=== PATIENT | male | born 1955 | race Caucasian/White ===

== ENCOUNTER 2020-02-08 13:08 | Inpatient (IN) | payer OTHER, MEDICAID ==
[~2020-02-08] VITALS: Ht 165.1 cm; Wt 83.5 kg
[2020-02-08 13:12] VITALS: BP 126/70
--- NOTE | 2020-02-08 13:15 | NUR ---
PT AMBULATED TO LOBBY
--- NOTE | 2020-02-08 13:30 | NUR ---
Pt placed in bed 8.
--- NOTE | 2020-02-08 13:45 | NUR ---
Patient being evaluated by Dr. Koehler at bedside.
--- NOTE | 2020-02-08 14:10 | NUR ---
64/M WAS SENT TO ED BY PCP FOR EVALUTION OF ABNORMAL LABS. [facility] DOCTOR CALLED AND REPORTED HE HAD A LOW HEMOGLOBIN LEVEL. PT APPEARS PALE, BUT HAS NO COMPLAINTS. HX ANEMIA
[2020-02-08 14:12] LABS: BASOPHILS # (AUTO) 0.1 K/uL (0.00-0.22); BASOPHILS % (AUTO) 1.1 % (0.0-2.0); EOSINOPHILS # (AUTO) 0.1 K/uL (0-0.4); EOSINOPHILS % (AUTO) 1.5 % (0.0-4.0); HEMATOCRIT 22.7 % (36-52); LYMPHOCYTES # (AUTO) 1.3 K/uL (2.0-11.5); LYMPHOCYTES % (AUTO) 15.1 % (20.5-51.1); MEAN CORPUSCULAR HEMOGLOBIN 18 pg (27-31); MEAN CORPUSCULAR HGB CONC 29 g/dL (33-37); MEAN CORPUSCULAR VOLUME 61.1 fL (80-94); MONOCYTES # (AUTO) 0.7 K/uL (0.8-1.0); MONOCYTES % (AUTO) 8.1 % (1.7-9.3); NEUTROPHILS # (AUTO) 6.2 K/uL (1.8-7.7); NEUTROPHILS % (AUTO) 74.2 % (42.2-75.2); PLATELET COUNT (AUTO) 402 K/uL (140-450); RED BLOOD CELL COUNT(AUTO) 3.71 MIL/uL (4.20-6.10); RED CELL DISTRIBUTION WIDTH 19.4 % (11.6-13.7); WHITE BLOOD COUNT (AUTO) 8.3 K/uL (4.8-10.8)
--- NOTE | 2020-02-08 14:13 | NUR ---
Pt report given to Ian. Transfer of care at this time.
[2020-02-08 14:19] LABS: HEMOGLOBIN 6.6 g/dL (12.0-18.0)
[2020-02-08 15:19] LABS: ALBUMIN 3.4 g/dL (3.4-5.0); ANION GAP 17.3 (8-16); CARBON DIOXIDE 21.1 mmol/L (21-32); CREATININE 1.5 mg/dL (0.6-1.3); POTASSIUM 4.4 mmol/L (3.5-5.1); TOTAL BILIRUBIN 0.4 mg/dL (0.0-1.0)
[2020-02-08 15:30] LABS: PROTHROMBIN TIME 9.9 secs (10.8-13.4)
--- NOTE | 2020-02-08 15:30 | NUR ---
PT IS RESTING IN BED AWAKE AND ALERT, VSS, AAOX4. ALL NEEDS MET AT THIS TIME
[2020-02-08] MEDS ORDERED: ACETAMINOPHEN 325 MG TAB PO PRN (15:55)
[2020-02-08] MEDS ORDERED: DOCUSATE SODIUM 100 MG GELCAP PO PRN (15:55)
[2020-02-08] MEDS ORDERED: ONDANSETRON 4 MG/2 ML VIAL IM/IVP PRN (15:55)
[2020-02-08 16:46] LABS: APPEARANCE,URINE CLEAR (CLEAR); BILIRUBIN,URINE NEGATIVE (NEGATIVE); BLOOD, URINE NEGATIVE (NEGATIVE); LEUKOCYTE ESTERASE ,URINE NEGATIVE (NEGATIVE); NITRITE, URINE NEGATIVE (NEGATIVE); UGLUCOSE NEGATIVE (NEGATIVE)
[2020-02-08 16:49] LABS: FREE T4 (FREE THYROXINE) 1.14 ng/dL (0.76-1.46); MAGNESIUM 1.8 mg/dL (1.8-2.4); THYROID STIMULATING HORMONE 0.31 uIU/mL (0.34-3.74)
[2020-02-08 16:58] LABS: COLOR,URINE STRAW (YELLOW)
[2020-02-08 17:12] LABS: BARBITURATE, URINE NEGATIVE ng/ml (NEG <=200); BENZODIAZEPINE, URINE NEGATIVE ng/mL (NEG <=200); CANNABINOID, URINE NEGATIVE ng/mL (NEG <=50); COCAINE, URINE NEGATIVE ng/mL (NEG <=300); OPIATE, URINE POSITIVE ng/mL (NEG <=2000); PHENCYCLIDINE SCREEN,URINE NEGATIVE ng/mL (NEG <=25)
--- NOTE | 2020-02-08 17:19 | NUR ---
BLOOD HAS BEEN HUNG, RUNNING AT 50 DROPS/MIN.
--- NOTE | 2020-02-08 17:35 | NUR ---
VSS, NO ADVERSE REACTION NOTED. PT DENIES ANY PAIN, RESP EVEN AND UNLABORED
[2020-02-08] MEDS: HYDROcodone/APAP 7.5/325 MG 1 TAB PO PRN ×2 (19:04→23:08)
--- NOTE | 2020-02-08 19:18 | NUR ---
RECEIVED REPORT FROM SHAD VALDOVINOS FOR CONTINUITY OF CARE.
[2020-02-08] MEDS: FERROUS SULFATE 325 MG TABEC PO SCH ×2 (20:19→20:20)
[2020-02-08 21:00] VITALS: BP 140/72
--- NOTE | 2020-02-08 21:00 | NUR ---
RECEIVED PT FROM ER NURSE, MARVIN. PT CAME IN [facility] AND ABLE TO AMBULATE TO [facility] BED. PT AAOX4, RESPIRATORY EVEN AND UNLABORED WITH ROOM AIR. IV SITE ON RAC 20G, PATENT, INTACT, AND ASYMPTOMATIC. SKIN INTACT, WARM AND DRY TO TOUCH. SKIN COLOR APPROPRIATE TO ETHNICITY. MRSA SWAB DONE, VS CHECKED, WITHIN PT'S BASELINE. ORIENT ROOM TO PT. ALL SAFETY MEASUREMENT ARE MET. PT STATES " I TAKE 9MG OF MELATONIN EVERY DAY AND ACID REFLEX MEDICATION NEEDED." WILL CALL TO DR. HUSSEIN. BED IN LOW POSITION, CALL LIGHT WITHIN REACH AND ENCOURAGE TO USE IT. WILL CONTINUE TO MONITOR.
--- NOTE | 2020-02-08 21:00 | NUR ---
FERROUS SULFATE PO ADM. PT TOLERATED WELL.
--- NOTE | 2020-02-08 21:05 | NUR ---
Patient will be admitted to care of DR HUSSEIN. Admited to TELE. Will go to room 110 B. Belongings list completed. Report to JHONNY VALDOVINOS.
--- NOTE | 2020-02-08 21:10 | NUR ---
PT TRANSFERRED TO 110 [address]. ACCOMPANIED BY 2 RNs NO COMPLICATIONS or DISTRESS NOTED.
--- NOTE | 2020-02-08 21:30 | NUR ---
PAGED DR. HUSSEIN AND RECEIVED ORDER OF MELATONIN AND PROTONIX. WILL ADMINISTER.
[2020-02-08] MEDS ORDERED: PANTOPRAZOLE 40 MG TABEC PO ONE (22:15)
[2020-02-08] MEDS: PANTOPRAZOLE 40 MG TABEC PO SCH (22:18)
[2020-02-08] MEDS: MELATONIN 3 MG TAB PO PRN (22:18)
--- NOTE | 2020-02-08 22:19 | NUR ---
GIVEN MELATONIN AND PROTONIX MD ORDERED. PT TOLERATED WELL.
--- NOTE | 2020-02-08 23:08 | NUR ---
PT C/O 01/01 RIGHT SHOULDER PAIN. GIVEN NORCO MD ORDERED. PT TOLERATED WELL.
[2020-02-09] VITALS: BP 127/69
--- NOTE | 2020-02-09 02:14 | NUR ---
PT SLEEPING IN BED COMFORTABLY. NO ACUTE DISTRESS NOTED.
[2020-02-09 04:00] VITALS: BP 110/64
--- NOTE | 2020-02-09 04:00 | NUR ---
VS CHECKED, WITHIN PT'S BASELINE. WILL CONTINUE TO MONITOR.
[2020-02-09] MEDS: HYDROcodone/APAP 7.5/325 MG 1 TAB PO PRN ×4 (06:40→20:32)
--- NOTE | 2020-02-09 06:40 | NUR ---
PT C/O 01/01 RIGHT SHOULDER PAIN. GIVEN NORCO MD ORDERED. PT TOLERATED WELL.
--- NOTE | 2020-02-09 06:55 | NUR ---
PATIENT HAS BEEN SCREENED AND CATEGORIZED HIGH NUTRITION RISK. PATIENT WILL BE SEEN WITHIN 1-2 DAYS OF ADMISSION. 02/10/20-02/11/20 RENE WARD MS, RDN
--- NOTE | 2020-02-09 07:00 | NUR ---
RECEIVED REPORT FROM [employer] NURSE JULISA. PT RESTING IN BED, AOX4, ON ROOM AIR WITH LEFT AC #20G/SL. DISCUSSED PLAN OF CARE AND PT VERBALIZED UNDERSTANDING. CALL LIGHT WITHIN REACH. NO S/S OF RESPIRATORY DISTRESS OR DISCOMFORT NOTED AT THIS TIME. WILL CONTINUE TO MONITOR.
[2020-02-09 07:05] LABS: BASOPHILS # (AUTO) 0.1 K/uL (0.00-0.22); BASOPHILS % (AUTO) 2.3 % (0.0-2.0); EOSINOPHILS # (AUTO) 0.3 K/uL (0-0.4); EOSINOPHILS % (AUTO) 4.9 % (0.0-4.0); HEMATOCRIT 24.7 % (36-52); HEMOGLOBIN 7.3 g/dL (12.0-18.0); LYMPHOCYTES # (AUTO) 1.1 K/uL (2.0-11.5); LYMPHOCYTES % (AUTO) 19.6 % (20.5-51.1); MEAN CORPUSCULAR HEMOGLOBIN 19 pg (27-31); MEAN CORPUSCULAR HGB CONC 30 g/dL (33-37); MONOCYTES # (AUTO) 0.5 K/uL (0.8-1.0); MONOCYTES % (AUTO) 9.1 % (1.7-9.3); NEUTROPHILS # (AUTO) 3.7 K/uL (1.8-7.7); NEUTROPHILS % (AUTO) 64.1 % (42.2-75.2); PLATELET COUNT (AUTO) 348 K/uL (140-450); RED BLOOD CELL COUNT(AUTO) 3.86 MIL/uL (4.20-6.10); RED CELL DISTRIBUTION WIDTH 21.8 % (11.6-13.7); WHITE BLOOD COUNT (AUTO) 5.8 K/uL (4.8-10.8)
[2020-02-09 07:25] LABS: ANION GAP 13.6 (8-16); CARBON DIOXIDE 23.5 mmol/L (21-32); CREATININE 1.3 mg/dL (0.6-1.3); POTASSIUM 4.1 mmol/L (3.5-5.1)
[2020-02-09 08:00] VITALS: BP 100/61
[2020-02-09] MEDS: FERROUS SULFATE 325 MG TABEC PO SCH ×2 (08:43→20:28)
--- NOTE | 2020-02-09 08:43 | NUR ---
SCHEDULED MEDICATION FERROUS SULFATE GIVEN AND TOLERATED WELL. CALL LIGHT WITHIN REACH. NO S/S OF RESPIRATORY DISTRESS OR DISCOMFORT NOTED AT THIS TIME. WILL CONTINUE TO MONITOR.
[2020-02-09 09:42] LABS: T4 (THYROXINE) 7.2 ug/dL (4.5-12.0)
--- NOTE | 2020-02-09 10:54 | NUR ---
PT C/O 10 PAIN AND NORCO GIVEN. PT TOLERATED WELL. CALL LIGHT WITHIN REACH. NO S/S OF RESPIRATORY DISTRESS OR DISCOMFORT NOTED AT THIS TIME. WILL CONTINUE TO MONITOR.
--- NOTE | 2020-02-09 11:23 | NUR ---
NEW IV SITE LEFT FA #22G/SL. PREVIOUS IV SITE PT C/O PAIN AND DISCOMFORT DUE TO SHOULDER/ARM PAIN AND REQUESTED NEW IV SITE ON LEFT ARM. PT TOLERATED WELL. CALL LIGHT WITHIN REACH. NO S/S OF RESPIRATORY DISTRESS OR DISCOMFORT NOTED AT THIS TIME. WILL CONTINUE TO MONITOR.
[2020-02-09 12:00] VITALS: BP 106/62
--- NOTE | 2020-02-09 13:30 | NUR ---
PT RESTING IN BED. CALL LIGHT WITHIN REACH. NO S/S OF RESPIRATORY DISTRESS OR DISCOMFORT NOTED AT THIS TIME. WILL CONTINUE TO MONITOR.
[2020-02-09 16:00] VITALS: BP 107/68
--- NOTE | 2020-02-09 16:12 | NUR ---
PT C/O PAIN 01/01 AND MEDICATED WITH NORCO. PT TOLERATED WELL. CALL LIGHT WITHIN REACH. NO S/S OF RESPIRATORY DISTRESS OR DISCOMFORT NOTED AT THIS TIME. WILL CONTINUE TO MONITOR.
--- NOTE | 2020-02-09 16:51 | NUR ---
DC [age]ANN[age] YRS OLD MALE PATIENT WAS ADMITTED FROM HOME WITH A DX OF SEVER ANEMIA WITH DIZZINESS. PT HAS A HX OF HTN AND HLD. HGB 6.6 1 UNIT PRBC TO BE TRANSFUSED. CXR SHOWED MILD LEFT BASILAR ATELECTASIS .DC PLAN TO GO HOME WHEN STABLE. CM TO FOLLOW.
--- NOTE | 2020-02-09 19:19 | NUR ---
ENDORSED TO [employer]ER PNEUMATIC NURSE PARRISH-BONIFACIO FOR CONTINUITY OF CARE. PT IN STABLE CONDITION AT THIS TIME.
--- NOTE | 2020-02-09 20:05 | NUR ---
PT IS AWAKE,ALERT AND ORIENTED.RESP.UNLABORED IN RA.LUNGS CLEAR.SL PATENT.CALL LIGHT WITHIN REACH.NO C/O PAIN NOW.WILL CONTINUE MONITORING.
[2020-02-09] MEDS: PANTOPRAZOLE 40 MG TABEC PO SCH (20:31)
--- NOTE | 2020-02-09 21:35 | NUR ---
HAD C/O PAIN PO MED GIVEN.SLEEPING NOW.
[2020-02-09] MEDS: MELATONIN 3 MG TAB PO PRN (23:53)
--- NOTE | 2020-02-10 00:15 | NUR ---
SLEEPING PILL GIVEN.NO DISTRESS NOTED.VS STABLE.
[2020-02-10] MEDS: HYDROcodone/APAP 7.5/325 MG 1 TAB PO PRN ×2 (04:20→09:09)
--- NOTE | 2020-02-10 06:58 | NUR ---
NO C/O PAIN AT THIS PAIN.CONDITION STABLE.
--- NOTE | 2020-02-10 07:30 | NUR ---
RECEIVED PT ON BED [id number]. NO SOB NOTED. NO C/O PAIN AT THIS TIME. IV TO LFA PATENT AND INTACT. CHEST CLEAR. ABDOMEN SOFT, BOWEL SOUNDS PRESENT. NO EDEMA NOTED. INSTRUCTED PT TO CALL FOR ASSISTANCE, CALL LIGHT WITHIN REACH, VERBALIZED UNDERSTANDING.
[2020-02-10 08:00] VITALS: BP 100/58
[2020-02-10 08:08] LABS: BASOPHILS # (AUTO) 0.2 K/uL (0.00-0.22); BASOPHILS % (AUTO) 3.4 % (0.0-2.0); EOSINOPHILS # (AUTO) 0.4 K/uL (0-0.4); EOSINOPHILS % (AUTO) 5.2 % (0.0-4.0); HEMATOCRIT 25.8 % (36-52); HEMOGLOBIN 7.8 g/dL (12.0-18.0); LYMPHOCYTES # (AUTO) 1.5 K/uL (2.0-11.5); MEAN CORPUSCULAR HEMOGLOBIN 19 pg (27-31); MEAN CORPUSCULAR HGB CONC 30 g/dL (33-37); MEAN CORPUSCULAR VOLUME 63.1 fL (80-94); MONOCYTES # (AUTO) 0.5 K/uL (0.8-1.0); MONOCYTES % (AUTO) 7.3 % (1.7-9.3); NEUTROPHILS # (AUTO) 4.4 K/uL (1.8-7.7); PLATELET COUNT (AUTO) 348 K/uL (140-450); RED BLOOD CELL COUNT(AUTO) 4.09 MIL/uL (4.20-6.10); RED CELL DISTRIBUTION WIDTH 21.2 % (11.6-13.7)
[2020-02-10 08:19] LABS: ANION GAP 15.1 (8-16); CARBON DIOXIDE 23.2 mmol/L (21-32); CREATININE 1.1 mg/dL (0.6-1.3); POTASSIUM 4.3 mmol/L (3.5-5.1)
[2020-02-10] MEDS: FERROUS SULFATE 325 MG TABEC PO SCH (09:09)
[2020-02-10 09:33] LABS: LYMPHOCYTES % (AUTO) 21.4 % (20.5-51.1); NEUTROPHILS % (AUTO) 62.7 % (42.2-75.2)
[2020-02-10] MEDS ORDERED: FERR325E14 PO (11:00)
--- NOTE | 2020-02-10 11:50 | NUR ---
DISCHARGE INSTRUCTIONS AND E-SCRIPT GIVEN TO PT WHICH VERBALIZED FULL UNDERSTANDING OF THE INSTRUCTIONS GIVEN AND THE NEED TO FOLLOW UP WITH PCP IN 3-5 DAYS AFTER DISCHARGE. ARM BANDS AND IV REMOVED, CANNULA TIP INTACT. PT WHEELED TO THE FRONT LOBBY IN STABLE CONDITION. NO COMPLAINTS MADE. PT IS D/C HOME WITH FAMILY.
== END 2020-02-10 11:50 | disposition home or self-care (01) | DRG 811 ==
LOC: MED 13:08 → MTU 19:09
PROVIDERS: ADMIT Family Medicine; ATTEND Family Medicine
PROC: 30233N1 Transfusion of Nonautologous Red Blood Cells into Peripheral Vein, Percutaneous Approach (ICD-10-PCS; principal; 2020-02-08)
DX: D50.9 Iron deficiency anemia, unspecified (principal); N17.0 Acute kidney failure with tubular necrosis; E78.2 Mixed hyperlipidemia; I10 Essential (primary) hypertension
CPT/HCPCS: 36415; 71045; 80048; 80053; 80305; 81003; 82150; 82607; 82728; 82746; 83036; 83540; 83690; 83735; 83880; 84100; 84436; 84439; 84443; 84479; 84484; 85025; 85045; 85610; 85730; 86886; 86900; 86901; 86920; 87081; 99285; P9016